=== PATIENT | male | born 1985 | race Two or more races ===

== ENCOUNTER 2022-09-08 15:51 | Emergency (ER) | payer SELFPAY ==
[~2022-09-08] VITALS: Ht 172.7 cm; Wt 81.6 kg
--- NOTE | 2022-09-08 16:00 | NUR ---
certified ophthalmic technician at bedside
[2022-09-08 16:36] VITALS: BP 164/87; TEMP 98.3
--- NOTE | 2022-09-08 16:40 | NUR ---
BIBPA FROM [facility] GENERALIZED WEAKNESS AND CONFUSION. ambulatory
--- NOTE | 2022-09-08 17:45 | NUR ---
dr lamas [facility] for eval
--- NOTE | 2022-09-08 20:05 | NUR ---
Patient discharged to home in stable condition. Written and verbal after care instructions given. Patient verbalizes understanding of instruction.
== END 2022-09-08 20:06 | disposition home or self-care (01) ==
LOC: ER 16:15
DX: M20.011 Mallet finger of right finger(s) (principal)
CPT/HCPCS: 73140-TC